=== PATIENT | male | born 1945 | race Caucasian/White ===

== ENCOUNTER 2016-08-12 10:46 | Inpatient (IN) | payer MEDICARE, OTHER ==
[2016-08-08 09:01] LABS: HEMATOCRIT 41.8 % (40.0-51.0); HEMOGLOBIN 14.3 g/dL (13.6-17.8)
[2016-08-08 09:10] LABS: CALCIUM, SERUM 8.8 MG/DL (8.5-10.4); CHLORIDE, SERUM 109 MMOL/L (96-112); CO2 (CARBON DIOXIDE) 26 MMOL/L (24-34); CREATININE 0.91 MG/DL (0.70-1.30); GFR AFRICAN AMERICAN 99 ML/MIN (>=60); GFR NON AFRICAN AMERICAN 86 ML/MIN (>=60); GLUCOSE, SERUM 108 MG/DL (60-99); POTASSIUM, SERUM 4.6 MMOL/L (3.5-5.3); SODIUM, SERUM 143 MMOL/L (135-148)
[2016-08-08 09:11] LABS: BUN (BLOOD UREA NITROGEN) 16 MG/DL (6-23)
[2016-08-08 09:54] LABS: ASCORBIC ACID (UR NOT ORDER) NEG (NEG); BILIRUBIN, URINE NEGATIVE (NEG); KETONE, URINE NEGATIVE (NEG); LEUKOCYTE ESTERASE(NOT OR NEG (NEG); WBC (NOT ORDERED) (RFLEX) 4 (0-5)
--- NOTE | ~2016-08-12 | HP ---
History And Physical [place] [id number] [facility] [place]. [address] NAME: DIOR HARDY : 49 STATUS : ADM IN PAT#: [id number] AGE: 71 ADM/REG DATE : 08/12/16 MR#: [id number] REPORT SERV DATE: 08/18/16 DICTATED BY: NICO HOWELL DATE: 08/18/16 REPORT STATUS : Draft TRANSCRIBED BY: MODL DATE: 08/18/16 DATE OF ADMISSION: 08/12/2016 H AND P CONSULT REASON FOR CONSULTATION: Nausea and vomiting, and abdominal distention. HISTORY OF PRESENT ILLNESS: This is a pleasant 71-year-old white male with a history of bladder cancer who underwent a cystectomy and ileal conduit surgery on 08/12/2016 who was postoperatively sent to the intensive care unit for difficult to wean from the ventilator and Critical Care actually followed him initially and was able to extubate him on 08/14/2016. He did develop some postoperative acute kidney injury and ATN. Nephrology has been following him as well and also Pulmonary Service continues to follow him as he has significant history of tobacco use and COPD. Today, the patient began to exhibit signs of some abdominal distention, has not been eating or drinking anything today, has had problems with nausea and what he describes as indigestion sensations and feeling full and also belching, and apparently the day prior, he did not have any of these symptoms. The patient actually vomited during the interview a moderate amount of green and brown bile and states that this was the first time he has vomited today. The urologist had ordered a KUB x-ray, but this has not been done yet. PAST MEDICAL HISTORY: Includes hypertension, osteoarthritis, TIA, cerebral aneurysm that is followed by a neurologist at [facility], bladder cancer that was diagnosed in May of 2016, and tobacco use with COPD. ALLERGIES: NO KNOWN DRUG OR FOOD ALLERGIES. HE RELATES THAT HE SMOKES ONE PACK PER DAY AND ALSO SMOKES MARIJUANA FROM TIME TO TIME. HE DENIES ANY SIGNIFICANT ALCOHOL INTAKE. PRIMARY CARE IS DR. AMAYA AT [facility]. PAST SURGICAL HISTORY: Includes C-spine and back surgery. He also had a transurethral resection of bladder tumor performed on 06/14/2016 and a cystoscopy and TURP performed on 05/03/2016. FAMILY HISTORY: Mother with colon cancer. Brother with diabetes type 2. Unknown father. SOCIAL HISTORY: He is and retired and lives [place], [place]. HOME MEDICATIONS: Prior to admission included Tylenol every four hours 500 mg, amlodipine 5 mg daily, gabapentin 300 mg twice a day, and Prinivil 20 mg daily. REVIEW OF SYSTEMS: Negative except for pertinent as mentioned above in HPI. PHYSICAL EXAMINATION: VITAL SIGNS: Temperature 97.9, pulse rate of 70, blood pressure 151/67, he is 97% on 3 History And Physical [address] [address] NAME: DIOR HARDY : 47 STATUS : ADM IN [facility]#: [id number] AGE: 71 ADM/REG DATE : 08/12/16 MR#: [id number] REPORT SERV DATE: 08/18/16 DICTATED BY: NICO HOWELL DATE: 08/18/16 REPORT STATUS : Draft TRANSCRIBED BY: MODL DATE: 08/18/16 liters nasal cannula. GENERAL: He is alert oriented x3 for exam, in no focal deficits. He is cooperative and awake. He complains of abdominal distention and abdominal fullness. HEENT: PERRLA is noted. Sclerae are clear. NECK: No appreciable lymphadenopathy is palpated. Normal thyroid. LUNGS: Rhonchus and diminished upon auscultation of the chest. No significant wheezing, however. CARDIOVASCULAR FORTE: No murmurs, rubs, or gallops are heard. He has a regular rate and rhythm. ABDOMEN: Distended and tympanic, but does have hypoactive bowel sounds in all four quadrants. He is tender to palpation in the epigastric region only on exam. EXTREMITIES: His lower extremities are normal with no edema, normal distal pulses. Otherwise, skin is warm and dry. No noted wounds or pressure ulcers. He has an ileostomy with a pink stoma draining clear yellow urine and two RAMIRO drains as well noted with some clear serous serosanguineous fluid noted. LABORATORY DATA: Lab work as of today on 08/18/2016 showed the sodium of 141, potassium 4.9, BUN of 42, creatinine 1.75, and glucose of 151. White blood cells of 5.0, hemoglobin of 10.6, hematocrit of 31.1, and platelets of 271. ASSESSMENT: 1. Nausea and vomiting and questionable bowel obstruction with abdominal distention. 2. Acute kidney injury that is slowly resolving, most recent creatinine 1.75. 3. Chronic obstructive pulmonary disease, tobacco use. 4. Hypertension. Blood pressure is minimally elevated. 5. Bladder cancer, status post cystectomy and ileal conduit on 08/12/2016. 6. Diabetes type 2 that is apparently diet controlled at home. PLAN: We will follow up with the KUB that has already been ordered. At this time, we will place an NG tube to low intermittent suction for decompression. 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 We will start a short course of IV Reglan and Dulcolax suppositories with every intention to continue mobilization and incentive spirometry for this patient. We will change his IV fluids to D5 half at 80 mL an hour and will keep him n.p.o. except for medications and ice chips at this time. Lab work will include a TSH, hemoglobin A1c, CBC, CMP, mag, and lipase. We will also decrease his gabapentin dosage overall to 300 mg daily. I have updated the patient and the patient's family at bedside. Questions were answered in full. I appreciate the ability to follow along with this patient. [facility]/AMAN Nico Howell NP History And Physical [address] [address] NAME: DIOR HARDY : 47 STATUS : ADM IN PAT#: [id number] AGE: 71 ADM/REG DATE : 08/12/16 MR#: [id number] REPORT SERV DATE: 08/18/16 DICTATED BY: NICO HOWELL DATE: 08/18/16 REPORT STATUS : Draft TRANSCRIBED BY: MODL DATE: 08/18/16 / [id number] CC: Brian Issa Jr., JUSTIN AARON
--- NOTE | ~2016-08-12 | CN ---
Consultation Report [facility] [address] [place]. [address] NAME: DIOR HARDY : 47 STATUS : ADM IN PAT#: [id number] AGE: 71 ADM/REG DATE : 08/12/16 MR#: [id number] REPORT SERV DATE: 08/12/16 DICTATED BY: KENYA BUCHANAN DATE: 08/12/16 REPORT STATUS : Draft TRANSCRIBED BY: MODL DATE: 08/12/16 PULMONARY CRITICAL CARE CONSULT NOTE DATE OF CONSULTATION: REQUESTING PHYSICIAN: Joe Caban M.D. REASON FOR CONSULTATION: Acute hypercapnic respiratory failure postoperatively. HISTORY OF PRESENT ILLNESS: Mr. Hardy is a 71-year-old gentleman who was initially diagnosed with invasive papillary urothelial cancer in mid May who has undergone tumor resection in June and has actually been admitted today for cystectomy with ileal conduit. His procedure was uneventful, and there was around 500 mL of estimated blood loss in the operating room per anesthesia. Postoperatively, there was difficulty weaning him from mechanical ventilation and he had some respiratory acidosis. He was ultimately left on the ventilator and was moved to the CCU for slower ventilator weaning. Of note, he does have a significant tobacco abuse history which we suspect may be contributing. PAST MEDICAL HISTORY: He has a chronic cough, although he has never been seen by a machine ii cutter or formally diagnosed with COPD. He has hypertension; question of hepatitis, although his daughter is unclear what type; previous cerebral aneurysm, which is followed at [place] on an annual basis. He has some issues with his balance but management has been observation only thus far. His osteoarthritis, poor dentition, question of a CVA 10 years ago, although it sounds like after hospitalization he was advised that stroke had been ruled out, ? (TIA )tobacco abuse and invasive papillary urothelial cancer which was found to be high-grade with right bladder wall muscle invasion following biopsy done 05/13/2016. PAST SURGICAL HISTORY: He had a back surgery in 1960s of unclear details, had a cervical spine surgery in 1994. He has had a cystoscopy with biopsy of bladder mass greater than 5 cm on 05/13/[address] Bianchi. A transurethral resection of that bladder tumor on 06/14/[address] Bianchi and today had a cystectomy with ileal conduit placement by Dr. Haq, which has been detailed above. PAST SOCIAL HISTORY: Previous 3 pack per day smoker. He has cut down significantly according to his daughter, although he continues to smoke on a daily basis. He has no alcohol use in recent years and does use marijuana. His daughter denies other illicit drug use to her knowledge. 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 FAMILY HISTORY: Mother had colon cancer. Brother with type 2 diabetes mellitus. He has no known drug allergies. HOME MEDICATIONS: Include lisinopril 20 at bedtime, amlodipine 5 daily, Neurontin 300 mg q.12 hours, and Tylenol on an as needed basis. He has no advanced directives or living Consultation Report [address] [place]. [address] NAME: DIOR HARDY : 47 STATUS : ADM IN PAT#: [id number] AGE: 71 ADM/REG DATE : 08/12/16 MR#: [id number] REPORT SERV DATE: 08/12/16 DICTATED BY: KENYA BUCHANAN DATE: 08/12/16 REPORT STATUS : Draft TRANSCRIBED BY: AMAN DATE: 08/12/16 ronel. His daughter, Hiral Coyle, at [phone] is his medical decision maker. He is full code according to Mrs. Coyle this evening. REVIEW OF SYSTEMS: A comprehensive 13-point review of systems completed with his daughter Hiral at the bedside in the CCU this evening was negative except for points described above in the history of present illness section of the dictation. PHYSICAL EXAMINATION: VITAL SIGNS: Temperature is 97.6, blood pressure 119/57, pulse is 66, respiratory rate is 13, O2 saturation is 100% on 50% FiO2 via mechanical ventilator. GENERAL: The patient is a male, who appears slightly older than stated age. HEENT: Head is atraumatic and normocephalic. Pupils are equal, round, and reactive to light. Extraocular movements are difficult to assess secondary to sedation. Ears, nose, and mouth are unremarkable other than poor dentition with an oral endotracheal tube which appear shallow based on a depth of 19 cm at the lips (8.0 ET tube). There is no feeding tube present. NECK: Supple without JVD. CHEST: He has a subclavian triple-lumen catheter in the right upper chest, a left radial art line, and a right 18-gauge peripheral IV. HEART: Heart sounds are normal. S1, S2 with brisk cap refill distal extremities, on new vasopressors. LUNGS: He has diminished lung sounds bilaterally. Few basilar crackles and a slight hyperinflation of the chest on physical exam consistent with obstructive lung disease, long- term. ABDOMEN: Soft, with clean surgical dressings which were not taken down during my examination. Iglesias catheter is indwelling and draining dark urine. EXTREMITIES: Without clubbing, cyanosis, or edema. He has some chronic skin changes distally consistent with likely peripheral vascular disease. LYMPHATIC: Unremarkable. He has no palpable adenopathy on my exam. NEUROLOGIC EXAM: Limited secondary to sedation. However, he is able to be aroused with a RASS approximately negative 2. Does follow simple commands despite sedation with propofol and moves all four extremities and withdraws to pain. PSYCHIATRIC EXAM: Unable to assess. DATA: Personal review of diagnostic workup completed today. Both [facility] and [facility] records were reviewed including previous OP reports and Anesthesia records. A portable chest x-ray done today shows right subclavian line and endotracheal tube. Both appear shallow with regard to their position. He has a slight hyperinflation of the lungs. On his initial chest x-ray, a followup x-ray done later this evening shows some basilar atelectasis and pulmonary vascular congestion. An ABG done in the PACU shows respiratory and slight metabolic acidosis with pH 7.12, pCO2 of 71, O2 of 199, base excess of -7.6, and bicarb calculated at 22.8. This was done on 70% FiO2. CBC shows white blood cell count of 8.9, hemoglobin 12.7, hematocrit 37.7, and platelet count is 235 with an unremarkable differential. Metabolic profile significant for acute kidney injury with BUN of 16 and a Consultation Report [address] [place]. [address] NAME: DIOR HARDY : 47 STATUS : ADM IN PAT#: [id number] AGE: 71 ADM/REG DATE : 08/12/16 MR#: [id number] REPORT SERV DATE: 08/12/16 DICTATED BY: KENYA BUCHANAN DATE: 08/12/16 REPORT STATUS : Draft TRANSCRIBED BY: MODL DATE: 08/12/16 creatinine of 1.82, which is well over his baseline of 0.91, most recently measured on 08/08/2016. Calculated GFR this evening is 37 mL/minute. Glucose level is 185 (in the setting of critical illness and underlying type 2 diabetes mellitus without pharmacologic management). Calcium is 8.1. There is no EKG on file from this hospitalization and no echocardiogram on record. No pulmonary function test were available either. IMPRESSION: 1. Acute postoperative hypercapnic respiratory failure with associated respiratory acidosis. 2. Suspected obstructive lung disease, likely chronic obstructive pulmonary disease, based on his prolonged smoking history, although his daughter reports that he has never been on medications for obstructive lung disease and has no known medical history of emphysema. 3. Acute kidney injury. 4. Hyperglycemia in the setting of underlying diabetes and critical illness. 5. Mild normochromic normocytic anemia in the setting of recent 500 mL blood loss in the operating room. 6. Invasive papillary bladder carcinoma postop day #0, status post cystectomy with ileal conduit. PLAN: After assessing Mr. Hardy this evening. We will plan to make some adjustments to his ventilator including lung protective ventilation strategy with hyperventilation as tolerated to correct his acidosis. Of note as we adjust his ventilator tonight, he was noted to have some breath stacking with respiratory rate greater than 20. We will place him on bronchodilator protocol including both short-acting beta agonists and ipratropium and follow up an ABG an hour or two to further adjust in light of his basilar crackles and a net positive volume status. We will hold the IV fluids, which he was transferred with from the PACU and followup his morning labs for renal function. Nephrotoxins should be avoided, and we may need Nephrology involvement. If he has further deterioration in his renal function with regard to his diabetes, we will keep him n.p.o. tonight and correct hyperglycemia with short-acting insulin with goal blood glucose of 140 to 180 while in the intensive care unit. He will have SCD's and JAE's placed for mechanical DVT prophylaxis and we will defer initiation of pharmacologic DVT prophylaxis to his surgeons tomorrow. We will place him on PPI for stress ulcer prophylaxis while he is on mechanical ventilation. The plan for care was discussed with his daughter Hiral antoine at the bedside in the CCU as well as with Dr. Caban from Anesthesia. He is a full code, and we will continue to make adjustments to his therapy as clinically warranted and Dr. Jimenez will re-evaluate him tomorrow morning. Approximately 64 minutes of critical care time at the bedside uninterrupted with subsequent stabilizing of Mr. Hardy after his arrival from the PACU. /AMAN Consultation Report [place] [id number] [place] [address] NAME: DIOR HARDY : 47 STATUS : ADM IN PAT#: [id number] AGE: 71 ADM/REG DATE : 08/12/16 MR#: [id number] REPORT SERV DATE: 08/12/16 DICTATED BY: KENYA BUCHANAN DATE: 08/12/16 REPORT STATUS : Draft TRANSCRIBED BY: AMAN DATE: 08/12/16 Kenya Buchanan MD / [id number] CC: Brian Issa Jr.
--- NOTE | ~2016-08-12 | OP ---
Record Of Operation [facility] [address] [place]. [address] NAME: DIOR HARDY : 49 STATUS : ADM IN PAT#: [id number] AGE: 71 ADM/REG DATE : 08/12/16 MR#: [id number] REPORT SERV DATE: 08/12/16 DICTATED BY: VERNON HAQ JR. DATE: 08/12/16 REPORT STATUS : Draft TRANSCRIBED BY: MODL DATE: 08/12/16 DATE OF PROCEDURE: 08/12/2016 SURGEON: Vernon Haq M.D. PREOPERATIVE DIAGNOSIS: Bladder carcinoma stage T2. POSTOPERATIVE DIAGNOSIS: Bladder carcinoma stage T2. PROCEDURE PERFORMED: Radical cystoprostatectomy and ileal conduit. COMPLICATIONS: None. CONSULTATIONS: None. ANESTHESIA: General with endotracheal tube. SPECIMENS: Bladder prostate and bilateral pelvic lymph nodes. DRAINS: Bilateral 15-Luxembourgish Atif drains. ESTIMATED BLOOD LOSS: 350 mL. INDICATION: Mr. Hardy is a 71-year-old gentleman with muscle invasive bladder carcinoma. He comes today for treatment of that with radical cystectomy and prostatectomy in the ileal conduit with bilateral pelvic lymph node dissection. PROCEDURE IN DETAIL: After the patient was identified and proper informed consent was obtained, he was taken to the operating room. General anesthesia was performed without complication using an endotracheal tube. He was then prepped and draped in normal sterile fashion in the supine position overlying the kidney rest with the kidney rest slightly raised and the table flexed. A midline incision was made from just above the umbilicus around the left side of the umbilicus down to the pubic symphysis. I incised the skin down and subcutaneous tissue down to the fascia of the abdominal wall into the peritoneal cavity above the umbilicus and isolating the urachus. I brought my incision through the rectus fascia all the way down to the pubic bone. I then developed the space of Retzius bilaterally sweeping the fatty tissue off the lateral portions of the bladder placing the Bookwalter in place and then mobilizing the peritoneal reflection on each side of the bladder down to the level of the seminal vesicles and opening the peritoneal reflection up to and including the covering of the psoas muscle in order to find the ureter on each side. I ligated and transected the vas deferens on each side using a large hemoclip. The ureters on each side were isolated and dissected down to the bladder base ligated using a 0 silk suture and cut. I placed a small section or segment on a Telfa from each ureter and sent that for frozen section. The frozen sections were negative. I then connected the peritoneal incisions across the base of the bladder above the rectum developed that space down to the tips of the seminal vesicles. I then turned my attention anteriorly and incised Record Of Operation [place] [address] [place]. [address] NAME: DIOR HARDY : 49 STATUS : ADM IN PAT#: [id number] AGE: 71 ADM/REG DATE : 08/12/16 MR#: [id number] REPORT SERV DATE: 08/12/16 DICTATED BY: VERNON HAQ JR. DATE: 08/12/16 REPORT STATUS : Draft TRANSCRIBED BY: AMAN DATE: 08/12/16 the endopelvic fascia bilaterally ligating the dorsal venous complex using a 2-0 Vicryl suture and transecting the urethra sharply with Endo Sri bringing the catheter into the abdominal incision and incising Denonvilliers fascia with Metzenbaum scissors. I then developed the space behind the prostate anterior to the rectum and connected with my previously dissected posterior elevation of the bladder. I then transected each of the bladder pedicles using an endovascular NAI stapling device and removed the bladder. Hemostasis was achieved using minimal electrocautery. I inspected the rectum, there was no injury to the rectal wall on the anterior side. I then turned my attention to the small bowel, isolated a 12-14 cm segment of small intestine approximately 14 cm proximal to the ileocecal valve. I reanastomosed the ilium using a [id number] pantaloon stable anastomosis technique over-sewing into the anastomosis using 3-0 silk Lembert sutures. I also closed the mesenteric defect taking care to not change the blood supply to the anastomosis and also to place the small pantaloon suture in the anastomosis as well using a 3-0 silk suture. At that point, I isolated the proximal end of the conduit using a 2-0 Vicryl suture to isolate the staple line. I then removed the staple line from the distal end of the conduit and then brought the left ureter over to the right retroperitoneum across the aorta and vena cava. I then performed an end-to-side anastomosis spatulated by spatulating the ureter and anastomosing over an 8-Luxembourgish single-J stent to the base of the conduit. I then made a stomal opening approximately 2 cm in size to the skin and rectus fascia bringing the conduit and end of the stent out through the stomal opening. I then performed a nice port graham stoma of the conduit with a nice pink color to it. Everything looked healthy along with the anastomosis. This was also reinspected one last time and appeared to be without any evidence of ischemia. I placed the omentum over the small intestine irrigated the pelvis once more and placed two RAMIRO drains, one in the pelvis and one along the right side of the abdomen. I closed the incision using 0 looped PDS suture with interrupted #1 Vicryl [id number] sutures to keep the incision snug. Once the fascia had been closed, I irrigated the wound copiously with sterile saline and closed the Anita's fascia with a 3-0 Vicryl suture and the skin with a 4-0 Monocryl in a subcuticular fashion. The stomal device was applied and it should be noted that I also performed bilateral pelvic lymph node dissections. This was done with the following boundaries using the external iliac vein, the obturator nerve, the bifurcation of the internal and external iliac vein, and the obturator fossa. Both node packets were sent for permanent section as there were no enlarged lymph nodes noted. The patient was awakened in the operating room and transferred to the postanesthesia care unit in stable condition. [facility]/AMAN Vernon Haq Jr., M.D. / [id number] CC: Brian Issa Jr., Justin Aaron
--- NOTE | ~2016-08-12 | DS ---
Discharge Summary [facility] [address] [place]. [address] NAME: DIOR HARDY : 49 STATUS : DIS IN PAT#: [id number] AGE: 71 ADM/REG DATE : 08/12/16 MR#: [id number] REPORT SERV DATE: 08/31/16 DICTATED BY: CARMEN WEIR III DATE: 08/30/16 REPORT STATUS : Draft TRANSCRIBED BY: MODTitus DATE: 08/30/16 Data Collection from hospitalization DISCHARGE DIAGNOSES: 1. Bladder carcinoma, stage T2, status post radical cystoprostatectomy and ileal conduit. 2. Hypertension. 3. Osteoarthritis. 4. History of transient ischemic attack. 5. History of cerebral aneurysm. 6. Tobacco use. 7. Chronic obstructive pulmonary disease. CONSULTATIONS: 1. Nico Ramos NP. 2. Daniel Walsh M.D. 3. Lillian Browne MD. PROCEDURES: 1. Radical cystoprostatectomy and ileal conduit, 08/12/2016. 2. Color flow vascular study of the renal artery, 08/14/2016. PATHOLOGY: Left ureter biopsy of margin-no carcinoma or high-grade dysplasia identified. Ureter, right ureter margin biopsy-no carcinoma or high-grade dysplasia identified. 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 Right obturator lymph node dissection (3)-no metastasis identified. Left node, left obturator lymph node dissection (4)-no metastasis identified. DISCHARGE MEDICATIONS: Tylenol 500 mg every four hours, Proventil one puff via inhaler as needed, Norvasc half tablet as instructed, Colace 100 mg twice a day, Neurontin 300 mg twice a day, Apresoline 10 mg every 8 hours, Habitrol 21 mg topically daily, Percocet 5/325 one tablet every 4 hours as needed, Spiriva one capsule via inhaler daily. He was instructed to stop taking lisinopril. CONDITION ON DISCHARGE: Stable. DISPOSITION: The patient was discharged home to be followed by home health care on a mechanical soft diet with activities as instructed. He would follow up with Dr. Vernon Haq Jr 09/06/2016. He is to follow up with his primary care provider in 1 to 2 weeks following discharge. HOSPITAL COURSE: This is a 71-year-old man who has a history of bladder cancer. Treatment options were discussed, and it was elected to proceed with surgical intervention. He was admitted to the hospital at this time for further evaluation and treatment. Upon admission, he was taken to the operating room where he underwent the above-mentioned procedure. He tolerated this well. There were no complications. Postoperatively, he was seen by Dr. Lillian Browne regarding acute hypercapnic respiratory failure postoperatively. There was difficulty weaning him from the mechanical ventilation, and he had some Discharge Summary [address] [address] NAME: DIOR HARDY : 49 STATUS : DIS IN PAT#: [id number] AGE: 71 ADM/REG DATE : 08/12/16 MR#: [id number] REPORT SERV DATE: 08/31/16 DICTATED BY: CARMEN WEIR III DATE: 08/30/16 REPORT STATUS : Draft TRANSCRIBED BY: AMAN DATE: 08/30/16 respiratory acidosis. He was ultimately left on the ventilator and was moved to the CCU for slower ventilator weaning. He does have a significant tobacco abuse history which we suspect may be contributing. He was felt to have suspected obstructive lung disease, likely chronic obstructive pulmonary disease based on his prolonged smoking history, although his daughter reports that he had never been on medication for obstructive lung disease and has no known medical history of emphysema. He has acute kidney injury and hyperglycemia. He has mild normochromic normocytic anemia in the setting of a recent 500 mL blood loss in the operating room. Adjustments were going to be made to his ventilator including lung protective ventilation strategy with hyperventilation as tolerated to correct the acidosis. As the ventilator was being adjusted, he was noted to have some breath stacking with respiratory rate greater than 20. He was placed on bronchodilator protocol including short- acting beta agonist and ipratropium. We would follow up an ABG in an hour or two to further adjust this in light of his basilar crackles and net positive volume status. IV fluids were held. Nephrotoxins would be avoided. If he has further deterioration in his renal function with regard to his diabetes, he would be held n.p.o. that evening, and we would correct hyperglycemia with short-acting insulin with the goal blood glucose of 140 to 180 while in the intensive care unit. SCDs and TEDs would be placed for mechanical DVT prophylaxis, and we would defer initiation of pharmacologic DVT prophylaxis to his surgeons the following day. He was going to be placed on proton pump inhibitor for stress ulcer prophylaxis while he was on mechanical ventilation. The following day, he was on low dose Precedex, the stoma was pink, he had good urine output, creatinine had increased to 1.99. He had a difficult extubation. Precedex was soft. On 08/14/2016, his pain was controlled, urine output had decreased. He was given a fluid challenge and Bumex. Creatinine level had increased to 3.3. He remained n.p.o. He did have some wheezing. DuoNeb were being provided. Color flow vascular study of the renal arteries was performed. There was no evidence of renal artery stenosis. There was an incidental left renal cyst. We encouraged him to stop smoking. It was felt he would need to undergo outpatient pulmonary function test. Spiriva was started. DuoNeb was changed to albuterol. He was seen by Dr. Daniel Walsh regarding acute kidney injury. The day previously, his creatinine level was 2.0. At this time, it is now 3.4. Over the last 24 hours, he is being given IV fluids and had 2592 mL of intake with only 435 mL of urine output. He was awake and alert. He had been extubated. He was chronically ill appearing. Chest x-ray showed no active infiltrates. He was felt to have borderline oliguric acute kidney injury. He almost certainly had developed ATN from renal hypoperfusion due to relative hypotension postoperatively. Urine sodium was elevated. We would stop WENDY inhibitor and amlodipine with relative hypotension. Intake was greater than output by 2 L over the last 24 hours. IV fluid rate was decreased. He would be diuresed with Bumex and albumin to try to convert to a nonoliguric state. We would avoid nephrotoxins medications. Supportive care continued. We hope he would be able to recover without the need for dialysis. On 08/15/2016, he did have a bowel movement. He was passing flatus. Creatinine level was stable at 3.29. Urine output had improved. We encouraged him to mobilize. Heparin was going to be restarted. Nicotine patch was in place. Renal function remained stable. He did have a good response to Bumex. WENDY inhibitor was on hold. On 08/16/2016, renal function continued to improve. He was going to be transferred to the floor. He was tolerating clear liquids. Creatinine was 2.6. ATN was improving. We encouraged him to mobilize. The next day, he had good urine output. He did have a bowel movement. Discharge Summary [facility] [place]. [address] NAME: DIOR HARDY : 49 STATUS : DIS IN PAT#: [id number] AGE: 71 ADM/REG DATE : 08/12/16 MR#: [id number] REPORT SERV DATE: 08/31/16 DICTATED BY: CARMEN WEIR III DATE: 08/30/16 REPORT STATUS : Draft TRANSCRIBED BY: MODTitus DATE: 08/30/16 Creatinine was now 1.86. On 08/18/2016, the patient did have some nausea and vomiting overnight. He was seen by Nico Ramos regarding the nausea, vomiting, and abdominal distention. He had not been eating or drinking anything that day. He described an indigestion type sensation and a feeling of being full. He was also belching. Apparently, the day previously, he did not have these symptoms. The patient actually vomited during this exam, and a moderate amount of green and brown bile was seen. He said this was the first time he had vomited that day. KUB was ordered. Creatinine level was 1.75. An NG tube was going to be placed to low intermittent suction for decompression. His current morphine FUR GLOSSER was discontinued. A short course of IV Reglan and Dulcolax suppositories were given with every intention to continue mobilization and incentive spirometry for this patient. IV fluids were adjusted to D5 half at 80 mL an hour, and he would be held n.p.o. except for medications and ice chips at that time. Lab work would include TSH, hemoglobin A1c, CBC, CMP, magnesium, and lipase. We would also decrease his gabapentin dosage overall to 300 mg daily. Next day, the patient was passing flatus. Stoma remained pink. He was felt to have an ileus. On 08/20/2016, the NG tube came out. His T-max was 98.7. We were going to slowly advance his diet. He was encouraged to participate with Physical Therapy. He said he was beginning to feel stronger. We encouraged him to use incentive spirometry. Discharge planning was performed. He had good urine output. On 08/22/2016, he was doing well. He was afebrile. His abdomen was soft and nontender. We encouraged him to ambulate. Discharge instructions were given. Due to his improved and stable condition, he was discharged home to be followed by home health care with the above-stated instructions. Information collected by: Vanesa Lu I submit the above information as my discharge summary. TG/MODL Carmen Weir III, M.D. / [id number] CC: Brian Issa Jr., M.D.
--- NOTE | ~2016-08-12 | CN ---
Consultation Report [facility] [address] [place]. [address] NAME: DIOR HARDY : 49 STATUS : ADM IN PAT#: [id number] AGE: 71 ADM/REG DATE : 08/12/16 MR#: [id number] REPORT SERV DATE: 08/14/16 DICTATED BY: SERGE BILLINGS DATE: 08/14/16 REPORT STATUS : Draft TRANSCRIBED BY: MODL DATE: 08/14/16 NEPHROLOGY CONSULT DATE OF CONSULTATION: 08/14/2016 REASON FOR CONSULT: Acute kidney injury. HISTORY OF PRESENT ILLNESS: Mr. Hardy is a 71-year-old white male with a history of bladder cancer. He is postop day 2 cystectomy and ileal conduit. His creatinine was 0.91 on preop testing 08/08. On the day of surgery, 08/12, creatinine was 1.82 at 1815 hours after surgery. Yesterday, he was hypotensive and transiently on pressors with a systolic blood pressure as low as 86 around 1300 hours. Labs yesterday morning showed creatinine 2.0. This morning creatinine is 3.4. Over the last 24 hours, he has been given IV fluids and has had 2592 mL of intake with only 435 mL of urine output. He is extubated, awake, and alert. PAST MEDICAL HISTORY: 1. Postop day 2, cystectomy and ileal conduit for bladder cancer. 2. COPD, ongoing tobacco abuse. 3. Hypertension, on WENDY inhibitor. 4. Osteoarthritis. CURRENT MEDICATIONS: Amlodipine 5 mg a day, Neurontin 300 mg b.i.d., sliding scale insulin, normal saline at 110 mL/hr, lisinopril 20 mg h.s., Protonix 40 mg IV daily, morphine EXTRACT MIXER. FAMILY HISTORY: No ESRD. SOCIAL HISTORY: He is a long-time smoker. He is a , retired, and lives in [place], [place]. REVIEW OF SYSTEMS: Significant for surgery 2 days ago, chronic tobacco abuse and wheezing and takes 2 Aleve at bedtime for the past year. PHYSICAL EXAMINATION: VITAL SIGNS: Temperature 98.1, pulse 96, respirations 23, blood pressure 107/59, 93% sat on 5 L per nasal cannula. GENERAL: He is a pleasant, chronically ill-appearing, elderly white male, who is awake, alert, oriented, and cooperative with the exam. He is lying flat in no distress. He has audible wheezing with mild tachypnea but no dyspnea. HEENT: Sclerae without icterus. Conjunctivae not injected. Oropharynx is clear. Mucous membranes are dry. No JVD. He has diffuse bilateral rhonchi. HEART: Regular rate and rhythm. 2/6 murmur. No rub. ABDOMEN: Soft, distended, right lower quadrant ileal conduit is in place. Bowel sounds are Consultation Report [address] [place]. [address] NAME: DIOR HARDY : 49 STATUS : ADM IN PAT#: [id number] AGE: 71 ADM/REG DATE : 08/12/16 MR#: [id number] REPORT SERV DATE: 08/14/16 DICTATED BY: SERGE BILLINGS DATE: 08/14/16 REPORT STATUS : Draft TRANSCRIBED BY: AMAN DATE: 08/14/16 present but faint and hypoactive. EXTREMITIES: Without edema. SKIN: Without rash or livedo reticularis. Urine in the Iglesias is dark brown colored and subjective decrease in output. NEURO: Grossly nonfocal. Mood and affect are appropriate. MUSCULOSKELETAL: No active tenosynovitis or gout. LABORATORY DATA: Sodium 142, potassium 4.2, bicarb 23, BUN 44, creatinine 3.4. GFR 17 mL/min. Anion gap 12. Calcium 7.7, phosphorus 5.0, albumin 3.4. Urine sodium 59. White count 9600 without eosinophilia, hemoglobin 10.6, platelets 174,000. Chest x-ray without active infiltrates. ASSESSMENT/PLAN: Mr. Hardy has borderline oliguric acute kidney injury, postop day 2 cystectomy with ileal conduit for bladder cancer, anemia, hypotension, chronic obstructive pulmonary disease with chronic tobacco abuse, and hypoalbuminemia. Almost certainly he has developed ATN from renal hypoperfusion due to relative hypotension postop. His urine sodium is elevated. Intake greater than output by 2 L over the last 24 hours. Stop WENDY inhibitor and amlodipine with relative hypotension. Decrease IV fluid rate. Diurese with Bumex and albumin to try to convert to a nonoliguric state. Avoid nephrotoxic medications. Supportive care continues. Watch labs closely. Hopefully, he will recover without the need for dialysis. Family updated at bedside and agree with treatment plans. We will follow closely with you and appreciate consult. NC/MODL Serge Billings M.D. / [id number] CC: Brian Issa Jr.
[~2016-08-12 10:46] MED LIST: ACET500CAP PO; NEUR300 PO; NORV10 PO; PRIN20 PO
[2016-08-12 18:34] LABS: BE (BASE EXCESS) -7.6 MEQ/L (0 +/- 2.5); CARBOXYHEMOGLOBIN 1.4 % (0-3); DEVICE TM; HCO3 (ACTUAL BICARBONATE) 22.8 MEQ/L (23-27); HEMOBLOGIN CONTENT 13.1 G/DL (14-18); INSTRUMENT SERIAL # 8083; METHEMOGLOBIN 0.5 % (0-3); O2 CONTENT 18.3 VOL% (18-24); PCO2 (CO2 TENSION) 71 MMHG (35-45); PO2 (O2 TENSION) 199 MMHG (79-93); SAMPLE Arterial; pH 7.12 (7.37-7.43)
[2016-08-12 18:40] LABS: BASOPHILS 0.6 %; BASOPHILS ABSOLUTE 0.05 10/3/uL (0.0-0.16); EOSINOPHILS 0.1 %; EOSINOPHILS ABSOLUTE 0.01 10/3/uL (0.0-0.53); HEMATOCRIT 37.7 % (40.0-51.0); HEMOGLOBIN 12.7 g/dL (13.6-17.8); IMMATURE GRANULOCYTES 0.2 %; IMMATURE GRANULOCYTES ABSOLUTE 0.02 10/3/uL (0.0-0.11); LYMPHOCYTES 7.4 %; LYMPHOCYTES ABSOLUTE 0.66 10/3/uL (0.67-4.30); MEAN CORPUS HGB CONC 33.7 g/dL (32.0-36.0); MEAN CORPUSCULAR HEMOGLOB 30.8 pg (26.0-34.0); MEAN CORPUSCULAR VOLUME 91.3 fL (80-100); MEAN PLATELET VOLUME 9.5 fL (9.2-13.0); MONOCYTES 3.4 %; NEUTROPHILS 88.3 %; NEUTROPHILS ABSOLUTE 7.82 10/3/uL (2.02-8.40); PLATELET COUNT 235 10/3/uL (150-400); RBC DISTRIBUTION WIDTH 13.9 % (12.0-16.0); RED CELL COUNT 4.13 10/6/uL (4.7-6.1); WHITE BLOOD CELLS 8.9 10/3/uL (4.5-10.5)
[2016-08-12 18:41] LABS: MANUAL DIFF NO %
[2016-08-12 18:55] LABS: BUN (BLOOD UREA NITROGEN) 16 MG/DL (6-23); CALCIUM, SERUM 8.1 MG/DL (8.5-10.4); CHLORIDE, SERUM 108 MMOL/L (96-112); CO2 (CARBON DIOXIDE) 26 MMOL/L (24-34); POTASSIUM, SERUM 4.3 MMOL/L (3.5-5.3); SODIUM, SERUM 143 MMOL/L (135-148)
[2016-08-12 18:58] LABS: CREATININE 1.82 MG/DL (0.70-1.30); GFR AFRICAN AMERICAN 43 ML/MIN (>=60); GFR NON AFRICAN AMERICAN 37 ML/MIN (>=60); GLUCOSE, SERUM 185 MG/DL (60-99)
[2016-08-12 23:20] LABS: CARBOXYHEMOGLOBIN 0.3 % (0-3); HCO3 (ACTUAL BICARBONATE) 18.4 MEQ/L (23-27); INSTRUMENT SERIAL # 35151; METHEMOGLOBIN 0.7 % (0-3); MODE CMV; O2 CONTENT 15.3 VOL% (18-24); OPERATOR ID 32193; PCO2 (CO2 TENSION) 46 MMHG (35-45); PO2 (O2 TENSION) 69 MMHG (79-93); SAMPLE Arterial; TIDAL VOLUME 450 ML; pH 7.22 (7.37-7.43)
[2016-08-13 04:27] LABS: BE (BASE EXCESS) -4.9 MEQ/L (0 +/- 2.5); CARBOXYHEMOGLOBIN 0.3 % (0-3); HCO3 (ACTUAL BICARBONATE) 20.5 MEQ/L (23-27); HEMOBLOGIN CONTENT 11.9 G/DL (14-18); INSTRUMENT SERIAL # 35151; METHEMOGLOBIN 0.5 % (0-3); MODE CMV; O2 CONTENT 15.8 VOL% (18-24); PCO2 (CO2 TENSION) 39 MMHG (35-45); PO2 (O2 TENSION) 77 MMHG (79-93); SAMPLE Arterial; TIDAL VOLUME 450 ML; pH 7.33 (7.37-7.43)
[2016-08-13 05:02] LABS: BASOPHILS 0.1 %; BASOPHILS ABSOLUTE 0.01 10/3/uL (0.0-0.16); EOSINOPHILS 0 %; HEMATOCRIT 32.9 % (40.0-51.0); HEMOGLOBIN 11.2 g/dL (13.6-17.8); LYMPHOCYTES 6.8 %; LYMPHOCYTES ABSOLUTE 0.52 10/3/uL (0.67-4.30); MANUAL DIFF NO %; MEAN CORPUSCULAR HEMOGLOB 30.7 pg (26.0-34.0); MEAN CORPUSCULAR VOLUME 90.1 fL (80-100); MEAN PLATELET VOLUME 9.3 fL (9.2-13.0); MONOCYTES ABSOLUTE 0.54 10/3/uL (0.21-1.20); NEUTROPHILS 86.1 %; NEUTROPHILS ABSOLUTE 6.61 10/3/uL (2.02-8.40); PLATELET COUNT 202 10/3/uL (150-400); RBC DISTRIBUTION WIDTH 13.9 % (12.0-16.0); RED CELL COUNT 3.65 10/6/uL (4.7-6.1); WHITE BLOOD CELLS 7.7 10/3/uL (4.5-10.5)
[2016-08-13 05:08] LABS: ALBUMIN 3.5 G/DL (3.5-5.0); BUN (BLOOD UREA NITROGEN) 24 MG/DL (6-23); CALCIUM, SERUM 7.8 MG/DL (8.5-10.4); CHLORIDE, SERUM 107 MMOL/L (96-112); CO2 (CARBON DIOXIDE) 25 MMOL/L (24-34); CREATININE 1.99 MG/DL (0.70-1.30); GFR AFRICAN AMERICAN 39 ML/MIN (>=60); GFR NON AFRICAN AMERICAN 33 ML/MIN (>=60); GLUCOSE, SERUM 183 MG/DL (60-99); PHOSPHORUS, SERUM 3.9 MG/DL (2.5-4.5); POTASSIUM, SERUM 4.2 MMOL/L (3.5-5.3); SODIUM, SERUM 144 MMOL/L (135-148)
[2016-08-13 11:36] LABS: PHOSPHORUS, SERUM 5.4 MG/DL (2.5-4.5)
[2016-08-14 01:33] LABS: BASOPHILS 0.3 %; BASOPHILS ABSOLUTE 0.03 10/3/uL (0.0-0.16); EOSINOPHILS 0 %; HEMATOCRIT 30.8 % (40.0-51.0); HEMOGLOBIN 10.6 g/dL (13.6-17.8); IMMATURE GRANULOCYTES 0.2 %; IMMATURE GRANULOCYTES ABSOLUTE 0.02 10/3/uL (0.0-0.11); LYMPHOCYTES 12.3 %; LYMPHOCYTES ABSOLUTE 1.17 10/3/uL (0.67-4.30); MEAN CORPUS HGB CONC 34.4 g/dL (32.0-36.0); MEAN CORPUSCULAR HEMOGLOB 31.4 pg (26.0-34.0); MEAN CORPUSCULAR VOLUME 91.1 fL (80-100); MEAN PLATELET VOLUME 9.5 fL (9.2-13.0); MONOCYTES 8.2 %; MONOCYTES ABSOLUTE 0.78 10/3/uL (0.21-1.20); NEUTROPHILS ABSOLUTE 7.55 10/3/uL (2.02-8.40); PLATELET COUNT 174 10/3/uL (150-400); RBC DISTRIBUTION WIDTH 14.2 % (12.0-16.0); RED CELL COUNT 3.38 10/6/uL (4.7-6.1); WHITE BLOOD CELLS 9.6 10/3/uL (4.5-10.5)
[2016-08-14 01:39] LABS: MANUAL DIFF NO %
[2016-08-14 01:45] LABS: ALBUMIN 3.4 G/DL (3.5-5.0); CALCIUM, SERUM 7.3 MG/DL (8.5-10.4); CHLORIDE, SERUM 107 MMOL/L (96-112); CO2 (CARBON DIOXIDE) 24 MMOL/L (24-34); POTASSIUM, SERUM 4.4 MMOL/L (3.5-5.3); SODIUM, SERUM 142 MMOL/L (135-148)
[2016-08-14 01:46] LABS: BUN (BLOOD UREA NITROGEN) 38 MG/DL (6-23); CREATININE 3.36 MG/DL (0.70-1.30); GFR AFRICAN AMERICAN 20 ML/MIN (>=60); GFR NON AFRICAN AMERICAN 18 ML/MIN (>=60); GLUCOSE, SERUM 111 MG/DL (60-99)
[2016-08-14 05:29] LABS: CALCIUM, SERUM 7.7 MG/DL (8.5-10.4); CHLORIDE, SERUM 107 MMOL/L (96-112); CO2 (CARBON DIOXIDE) 23 MMOL/L (24-34); GFR AFRICAN AMERICAN 20 ML/MIN (>=60); GFR NON AFRICAN AMERICAN 17 ML/MIN (>=60); POTASSIUM, SERUM 4.2 MMOL/L (3.5-5.3); SODIUM, SERUM 142 MMOL/L (135-148)
[2016-08-14 05:33] LABS: BUN (BLOOD UREA NITROGEN) 44 MG/DL (6-23); GLUCOSE, SERUM 134 MG/DL (60-99)
[2016-08-15 05:20] LABS: BASOPHILS 0.3 %; BASOPHILS ABSOLUTE 0.02 10/3/uL (0.0-0.16); EOSINOPHILS 0.7 %; EOSINOPHILS ABSOLUTE 0.05 10/3/uL (0.0-0.53); IMMATURE GRANULOCYTES 0.1 %; IMMATURE GRANULOCYTES ABSOLUTE 0.01 10/3/uL (0.0-0.11); LYMPHOCYTES 16.7 %; LYMPHOCYTES ABSOLUTE 1.23 10/3/uL (0.67-4.30); MEAN CORPUS HGB CONC 32.7 g/dL (32.0-36.0); MEAN CORPUSCULAR HEMOGLOB 29.8 pg (26.0-34.0); MEAN CORPUSCULAR VOLUME 91.1 fL (80-100); MEAN PLATELET VOLUME 9.2 fL (9.2-13.0); MONOCYTES 9.4 %; MONOCYTES ABSOLUTE 0.69 10/3/uL (0.21-1.20); NEUTROPHILS 72.8 %; NEUTROPHILS ABSOLUTE 5.37 10/3/uL (2.02-8.40); PLATELET COUNT 173 10/3/uL (150-400); RBC DISTRIBUTION WIDTH 14.3 % (12.0-16.0); RED CELL COUNT 3.02 10/6/uL (4.7-6.1); WHITE BLOOD CELLS 7.4 10/3/uL (4.5-10.5)
[2016-08-15 05:22] LABS: HEMATOCRIT 27.5 % (40.0-51.0); MANUAL DIFF NO %
[2016-08-15 05:28] LABS: CALCIUM, SERUM 7.8 MG/DL (8.5-10.4); CHLORIDE, SERUM 107 MMOL/L (96-112); CO2 (CARBON DIOXIDE) 24 MMOL/L (24-34); CREATININE 3.29 MG/DL (0.70-1.30); GFR AFRICAN AMERICAN 21 ML/MIN (>=60); GFR NON AFRICAN AMERICAN 18 ML/MIN (>=60); GLUCOSE, SERUM 111 MG/DL (60-99); POTASSIUM, SERUM 4.2 MMOL/L (3.5-5.3); SODIUM, SERUM 141 MMOL/L (135-148)
[2016-08-15 05:29] LABS: BUN (BLOOD UREA NITROGEN) 52 MG/DL (6-23); PHOSPHORUS, SERUM 3.9 MG/DL (2.5-4.5)
[2016-08-16 05:11] LABS: ALBUMIN 3.3 G/DL (3.5-5.0); BUN (BLOOD UREA NITROGEN) 49 MG/DL (6-23); CALCIUM, SERUM 8.4 MG/DL (8.5-10.4); CHLORIDE, SERUM 105 MMOL/L (96-112); CO2 (CARBON DIOXIDE) 24 MMOL/L (24-34); PHOSPHORUS, SERUM 3.5 MG/DL (2.5-4.5); POTASSIUM, SERUM 4.5 MMOL/L (3.5-5.3); SODIUM, SERUM 138 MMOL/L (135-148)
[2016-08-16 05:15] LABS: BASOPHILS 0.8 %; BASOPHILS ABSOLUTE 0.05 10/3/uL (0.0-0.16); EOSINOPHILS 2.1 %; EOSINOPHILS ABSOLUTE 0.14 10/3/uL (0.0-0.53); HEMATOCRIT 28.1 % (40.0-51.0); HEMOGLOBIN 9.3 g/dL (13.6-17.8); IMMATURE GRANULOCYTES 0.2 %; IMMATURE GRANULOCYTES ABSOLUTE 0.01 10/3/uL (0.0-0.11); LYMPHOCYTES 15.4 %; LYMPHOCYTES ABSOLUTE 1.01 10/3/uL (0.67-4.30); MEAN CORPUS HGB CONC 33.1 g/dL (32.0-36.0); MEAN CORPUSCULAR HEMOGLOB 30.2 pg (26.0-34.0); MEAN CORPUSCULAR VOLUME 91.2 fL (80-100); MEAN PLATELET VOLUME 9.6 fL (9.2-13.0); MONOCYTES 8.9 %; MONOCYTES ABSOLUTE 0.58 10/3/uL (0.21-1.20); NEUTROPHILS 72.6 %; NEUTROPHILS ABSOLUTE 4.75 10/3/uL (2.02-8.40); PLATELET COUNT 209 10/3/uL (150-400); RBC DISTRIBUTION WIDTH 13.9 % (12.0-16.0); RED CELL COUNT 3.08 10/6/uL (4.7-6.1); WHITE BLOOD CELLS 6.5 10/3/uL (4.5-10.5)
[2016-08-16 05:21] LABS: CREATININE 2.55 MG/DL (0.70-1.30); GFR AFRICAN AMERICAN 29 ML/MIN (>=60); GFR NON AFRICAN AMERICAN 25 ML/MIN (>=60); GLUCOSE, SERUM 152 MG/DL (60-99)
[2016-08-16 05:29] LABS: MANUAL DIFF NO %
[2016-08-17 08:50] LABS: BUN (BLOOD UREA NITROGEN) 44 MG/DL (6-23); CALCIUM, SERUM 8.5 MG/DL (8.5-10.4); CHLORIDE, SERUM 108 MMOL/L (96-112); CO2 (CARBON DIOXIDE) 26 MMOL/L (24-34); CREATININE 1.86 MG/DL (0.70-1.30); GFR AFRICAN AMERICAN 42 ML/MIN (>=60); GFR NON AFRICAN AMERICAN 36 ML/MIN (>=60); GLUCOSE, SERUM 118 MG/DL (60-99); POTASSIUM, SERUM 4.9 MMOL/L (3.5-5.3); SODIUM, SERUM 141 MMOL/L (135-148)
[2016-08-18 07:31] LABS: BASOPHILS 0.4 %; BASOPHILS ABSOLUTE 0.02 10/3/uL (0.0-0.16); EOSINOPHILS 2.4 %; EOSINOPHILS ABSOLUTE 0.12 10/3/uL (0.0-0.53); HEMATOCRIT 31.1 % (40.0-51.0); HEMOGLOBIN 10.6 g/dL (13.6-17.8); IMMATURE GRANULOCYTES 0.2 %; IMMATURE GRANULOCYTES ABSOLUTE 0.01 10/3/uL (0.0-0.11); LYMPHOCYTES 12.3 %; LYMPHOCYTES ABSOLUTE 0.61 10/3/uL (0.67-4.30); MANUAL DIFF NO %; MEAN CORPUS HGB CONC 34.1 g/dL (32.0-36.0); MEAN CORPUSCULAR HEMOGLOB 30.2 pg (26.0-34.0); MEAN CORPUSCULAR VOLUME 88.6 fL (80-100); MEAN PLATELET VOLUME 9.4 fL (9.2-13.0); MONOCYTES 10.9 %; MONOCYTES ABSOLUTE 0.54 10/3/uL (0.21-1.20); NEUTROPHILS 73.8 %; NEUTROPHILS ABSOLUTE 3.66 10/3/uL (2.02-8.40); PLATELET COUNT 271 10/3/uL (150-400); RBC DISTRIBUTION WIDTH 13.7 % (12.0-16.0); RED CELL COUNT 3.51 10/6/uL (4.7-6.1)
[2016-08-18 07:44] LABS: ALBUMIN 2.9 G/DL (3.5-5.0); BUN (BLOOD UREA NITROGEN) 42 MG/DL (6-23); CALCIUM, SERUM 8.7 MG/DL (8.5-10.4); CHLORIDE, SERUM 106 MMOL/L (96-112); CO2 (CARBON DIOXIDE) 24 MMOL/L (24-34); CREATININE 1.75 MG/DL (0.70-1.30); GFR AFRICAN AMERICAN 45 ML/MIN (>=60); GFR NON AFRICAN AMERICAN 39 ML/MIN (>=60); PHOSPHORUS, SERUM 3.3 MG/DL (2.5-4.5); POTASSIUM, SERUM 4.9 MMOL/L (3.5-5.3); SODIUM, SERUM 141 MMOL/L (135-148)
[2016-08-18 07:45] LABS: GLUCOSE, SERUM 151 MG/DL (60-99)
[2016-08-19 07:11] LABS: BASOPHILS 0.6 %; BASOPHILS ABSOLUTE 0.03 10/3/uL (0.0-0.16); EOSINOPHILS 0.4 %; EOSINOPHILS ABSOLUTE 0.02 10/3/uL (0.0-0.53); HEMATOCRIT 29.5 % (40.0-51.0); IMMATURE GRANULOCYTES 0.2 %; IMMATURE GRANULOCYTES ABSOLUTE 0.01 10/3/uL (0.0-0.11); LYMPHOCYTES 14.5 %; LYMPHOCYTES ABSOLUTE 0.77 10/3/uL (0.67-4.30); MEAN CORPUS HGB CONC 33.9 g/dL (32.0-36.0); MEAN CORPUSCULAR HEMOGLOB 30.3 pg (26.0-34.0); MEAN CORPUSCULAR VOLUME 89.4 fL (80-100); MEAN PLATELET VOLUME 9.3 fL (9.2-13.0); MONOCYTES 8.1 %; MONOCYTES ABSOLUTE 0.43 10/3/uL (0.21-1.20); NEUTROPHILS 76.2 %; NEUTROPHILS ABSOLUTE 4.04 10/3/uL (2.02-8.40); PLATELET COUNT 266 10/3/uL (150-400); RBC DISTRIBUTION WIDTH 13.5 % (12.0-16.0); WHITE BLOOD CELLS 5.3 10/3/uL (4.5-10.5)
[2016-08-19 07:12] LABS: MANUAL DIFF NO %
[2016-08-19 07:33] LABS: A/G RATIO 0.9 (0.7-1.9); ALBUMIN 2.7 G/DL (3.5-5.0); ALKALINE PHOSPHATASE 38 U/L (45-117); BUN (BLOOD UREA NITROGEN) 43 MG/DL (6-23); CALCIUM, SERUM 8.3 MG/DL (8.5-10.4); CHLORIDE, SERUM 109 MMOL/L (96-112); CO2 (CARBON DIOXIDE) 25 MMOL/L (24-34); CREATININE 1.65 MG/DL (0.70-1.30); GFR AFRICAN AMERICAN 48 ML/MIN (>=60); GFR NON AFRICAN AMERICAN 42 ML/MIN (>=60); GLOBULIN 3.1 G/DL (2.5-4.1); GLUCOSE, SERUM 149 MG/DL (60-99); POTASSIUM, SERUM 4.7 MMOL/L (3.5-5.3); SGOT(AST) 37 U/L (5-40); SGPT(ALT) 37 U/L (5-65); SODIUM, SERUM 143 MMOL/L (135-148); TOTAL BILIRUBIN 0.5 MG/DL (0-1.2); TOTAL PROTEIN 5.8 G/DL (6.0-8.5)
[2016-08-20 06:40] LABS: BUN (BLOOD UREA NITROGEN) 42 MG/DL (6-23); CALCIUM, SERUM 8.4 MG/DL (8.5-10.4); CHLORIDE, SERUM 112 MMOL/L (96-112); CO2 (CARBON DIOXIDE) 21 MMOL/L (24-34); CREATININE 1.51 MG/DL (0.70-1.30); GFR AFRICAN AMERICAN 54 ML/MIN (>=60); GFR NON AFRICAN AMERICAN 46 ML/MIN (>=60); POTASSIUM, SERUM 4.6 MMOL/L (3.5-5.3); SODIUM, SERUM 146 MMOL/L (135-148)
[2016-08-20 06:41] LABS: GLUCOSE, SERUM 115 MG/DL (60-99)
[2016-08-22 06:17] LABS: BUN (BLOOD UREA NITROGEN) 39 MG/DL (6-23); CALCIUM, SERUM 8.2 MG/DL (8.5-10.4); CHLORIDE, SERUM 113 MMOL/L (96-112); CO2 (CARBON DIOXIDE) 22 MMOL/L (24-34); GFR AFRICAN AMERICAN 50 ML/MIN (>=60); GFR NON AFRICAN AMERICAN 43 ML/MIN (>=60); POTASSIUM, SERUM 4.1 MMOL/L (3.5-5.3); SODIUM, SERUM 142 MMOL/L (135-148)
[2016-08-22 06:18] LABS: GLUCOSE, SERUM 145 MG/DL (60-99)
[2016-08-22] MEDS ORDERED: DSS PO (13:55)
[2016-08-22] MEDS ORDERED: PCET PO (13:55)
[2016-08-22] MEDS ORDERED: HABIT21 TOP (15:10)
[2016-08-22] MEDS ORDERED: SPIRIVA INH (15:10)
[2016-08-22] MEDS ORDERED: APRES10B PO (15:11)
[2016-08-22] MEDS ORDERED: PROVHFA INH (15:11)
[2016-12-09] MEDS ORDERED: KLOR-CON 1010 MEQ PO (15:55)
[2016-12-11] MEDS ORDERED: POTASSIUM PO/LIQ (13:13)
[2016-12-11] MEDS ORDERED: EZFE 200200 MG PO (13:13)
[2016-12-11] MEDS ORDERED: ULTRAM50 PO (13:15)
[2016-12-11] MEDS ORDERED: KIONEX PO/LIQ (20:38)
[2016-12-24] MEDS ORDERED: CIP5 PO (09:46)
[2017-02-18] MEDS ORDERED: L20 PO (09:29)
== END 2016-08-22 16:02 | disposition home health service (06) | DRG 653 ==
LOC: SDC/OF 10:46 → PACU 18:04 → CCU 20:05 → 4SO 08-16 18:31
PROVIDERS: Internal Medicine; Internal Medicine Critical Care Medicine; Internal Medicine Nephrology; Internal Medicine Pulmonary Disease; Nurse Practitioner Family; Registered Nurse; Urology
PROC: 0TTB0ZZ Resection of Bladder, Open Approach (ICD-10-PCS; 2016-08-12)
PROC: 5A1945Z Respiratory Ventilation, 24-96 Consecutive Hours (ICD-10-PCS; 2016-08-12)
PROC: 07TC0ZZ Resection of Pelvis Lymphatic, Open Approach (ICD-10-PCS; 2016-08-12)
PROC: 0T1 Urinary System, Bypass (ICD-10-PCS; 2016-08-12)
PROC: 0BH17EZ Insertion of Endotracheal Airway into Trachea, Via Natural or Artificial Opening (ICD-10-PCS; 2016-08-12)
PROC: 0DBB0ZZ Excision of Ileum, Open Approach (ICD-10-PCS; 2016-08-12)
PROC: 0VT00ZZ Resection of Prostate, Open Approach (ICD-10-PCS; principal; 2016-08-12 12:45)
DX: C67.2 Malignant neoplasm of lateral wall of bladder (principal); J95.821 Acute postprocedural respiratory failure; N17.9 Acute kidney failure, unspecified; E87.4 Mixed disorder of acid-base balance; E87.2 Acidosis; K91.3 Postprocedural intestinal obstruction; F17.210 Nicotine dependence, cigarettes, uncomplicated; E11.65 Type 2 diabetes mellitus with hyperglycemia; J44.9 Chronic obstructive pulmonary disease, unspecified; I10 Essential (primary) hypertension; M19.90 Unspecified osteoarthritis, unspecified site; Z86.73 Personal history of transient ischemic attack (TIA), and cerebral infarction without residual deficits; Z98.890 Other specified postprocedural states; C67.6 Malignant neoplasm of ureteric orifice; N20.0 Calculus of kidney; F17.200 Nicotine dependence, unspecified, uncomplicated; R31.9 Hematuria, unspecified; E78.00 Pure hypercholesterolemia, unspecified; I67.1 Cerebral aneurysm, nonruptured; I95.89 Other hypotension; Y83.6 Removal of other organ (partial) (total) as the cause of abnormal reaction of the patient, or of later complication, without mention of misadventure at the time of the procedure; Y92.239 Unspecified place in hospital as the place of occurrence of the external cause
CPT/HCPCS: 31720; 36415; 36600; 71010; 74020; 80048; 80053; 80069; 81001; 82043; 82570; 82805; 82962; 83036; 83690; 83735; 83930; 83935; 84100; 84133; 84300; 84443; 85014; 85018; 85025; 86850; 86900; 86901; 87641; 88305; 88307; 88309; 88313; 88331; 88332; 93005; 93975; 94002; 94003; 94640; 94660; 94770; 97110-GP; 97116-GP; 97162-GP; A9270-GY; C1769; C2617; C9113; G8978-CM-GP; G8979-CJ-GP; J0690; J0694; J2250; J2270; J2370; J2405; J2550; J2710; J2765; J2795; J3010; P9045; P9047